=== PATIENT | male | born 1975 | race Caucasian/White ===

== ENCOUNTER 2021-11-21 08:15 | Emergency (ER) | payer SELFPAY ==
[~2021-11-21] VITALS: Ht 180.3 cm; Wt 95.9 kg
[2021-11-21 08:20] VITALS: BP 165/95
[2021-11-21] MEDS ORDERED: PRED50TA PO (08:54)
[2021-11-21] MEDS ORDERED: AZIT250T6 PO (08:54)
--- NOTE | 2021-11-21 08:55 | PHYS DOC ---
Adult General Chief Complaint Chief Complaint: [facility] HPI Patient is a 46 year old male who presents with cough. Has been ill for 1 to 2 weeks. Complains of cough and wheezing. Cough is productive of yellow-green sputum. No acute shortness of breath. Denies lung problems. No history of COPD. No fever. He has had some upper airway congestion initially that has improved. Has several ill contacts. Review of Systems Review of Systems Constitutional: Denies fever or chills Eyes: Denies change in visual acuity HENT: Denies nasal congestion or sore throat Respiratory: as documented in HPI Cardiovascular: No additional information not addressed in HPI GI: Denies abdominal pain : Denies Musculoskeletal: Denies Integument: Denies rash or skin lesions Neurologic: Denies headache Endocrine: Denies polyuria All other systems were reviewed and found to be within normal limits, except as documented in this note. Allergies Allergies Allergies Coded Allergies Type Severity Reaction Last Updated Verified No Known Drug Allergies 11/21/21 No Physical Exam Physical Exam Constitutional: Well developed, well nourished, no acute distress, non-toxic appearance. HENT: Normocephalic, atraumatic, bilateral external ears normal, oropharynx moist, no oral exudates, nose normal Eyes: PERRLA, EOMI, conjunctiva normal, no discharge. Neck: Normal range of motion, no tenderness, supple, no stridor. Cardiovascular:Heart rate regular rhythm, no murmur Lungs & Thorax: Bilateral breath sounds mostly clear to auscultation, has few scattered wheezes but good air movement in all pablo. No increased work of breathing. Has a cough that is very wheezy during the interview Skin: Warm, dry, no erythema, no rash Back: Normal ROM Extremities: No tenderness, no edema Neurologic: Alert and oriented X 3 Psychologic: Affect normal EKG EKG [] Radiology/Procedures Radiology/Procedures [] Course & Med Decision Making Course & Med Decision Making Pertinent Labs and Imaging studies reviewed. (See chart for details) ED summary: Patient seen in the ER for bronchitis or upper respiratory infection. He does have a few scattered wheezes but no increased work of breathing. He does not have a history of asthma. Has been ill for almost 2 weeks. Given the chronicity of his symptoms, he is started on azithromycin. Given prednisone also over the next 5 days. Does not have oxygen needs today and is stable on room air. Stable for discharge from the ER and I recommended he follow-up with his primary care doctor. Connor Disclaimer Connor Disclaimer This electronic medical record was generated, in whole or in part, using a voice recognition dictation system. Departure Departure Disposition: HOME / SELF CARE / HOMELESS Condition: GOOD Referrals: UNKNOWN PCP NAME (PCP) Patient Instructions: Upper Respiratory Infection, Adult Scripts Prednisone (PREDNISONE) 50 Mg Tablet 1 TAB PO DAILY, #4 TAB Prov: WILLIAM SOFIA DO 11/21/21 Azithromycin (AZITHROMYCIN TABLET) 250 Mg Tablet 250 MG PO DAILY for ANTI-BIOTIC for 4 Days, #4 TAB 0 Refills Prov: WILLIAM SOFIA DO 11/21/21 WILLIAM SOFIA DO November 21, 2021 08:55
[2021-11-21] MEDS ORDERED: AZITHROMYCIN 250 MG TABLET. PO ONE (09:00)
[2021-11-21] MEDS ORDERED: predniSONE 20 MG TABLET PO ONE (09:00)
== END 2021-11-21 09:16 | disposition home or self-care (01) ==
LOC: ER 08:15
DX: R05.9 Cough, unspecified (principal); R06.2 Wheezing
CPT/HCPCS: 99283; J7512